=== PATIENT | female | born 1995 | race Caucasian/White ===

== ENCOUNTER 2022-12-13 16:57 | Inpatient (IN) ==
[2022-12-13] MEDS ORDERED: miSOPROStoL 50 MCG TAB PO ONE (20:31)
[2022-12-13] MEDS ORDERED: LIDOCAINE 1% LOCAL 20 ML VIAL INFIL PRN (20:31)
[2022-12-13] MEDS ORDERED: OXYTOCIN 30 UNITS/500 ML BAG IV PRN (20:31)
[2022-12-13 21:34] LABS: Hematocrit (blood only) 39.7 % (37.0-47.0); Mean Corpuscular Hemoglobin 31.5 pg (25.0-34.0); Mean Corpuscular Hgb Conc 35.3 g/dL (32.0-36.0); Mean Corpuscular Volume 89.2 fL (80.0-100.0); Mean Platelet Volume 10.9 fL (9.4-12.4); Platelet Count 186 K/uL (130-400); RDW Coefficient of Variation 13.1 % (11.5-14.5); RDW Standard Deviation 42.7 fL (36.4-46.3); Red Blood Count 4.45 M/uL (4.20-5.40); White Blood Count 10.81 K/ul (4.8-10.8)
[2022-12-14] MEDS ORDERED: OXYTOCIN 30 UNITS/500 ML BAG IV PRN ×2 (02:37→12:01)
[2022-12-14] MEDS: LACTATED RINGER'S 1,000 ML IV PRN ×2 (03:02→07:08)
[2022-12-14] MEDS ORDERED: fentaNYL citrate PF 100 MCG/2 ML VIAL ONE (06:43)
[2022-12-14] MEDS ORDERED: ePHEDrine sulfate 50 MG/ML AMP ONE (06:43)
[2022-12-14] MEDS ORDERED: fentaNYL 2MCG/ML ROPIVACAINE 1.25MG/ML 100 ML BAG EPI ONE (06:44)
[2022-12-14] MEDS ORDERED: SODIUM CHLORIDE 0.9% PF INJ 10 ML VIAL ONE (06:44)
[2022-12-14] MEDS ORDERED: BUPIVACAINE 0.25% PF 30 ML VIAL ONE (06:44)
[2022-12-14] MEDS ORDERED: LIDOCAINE 2%/EPINEPHRINE 1:200,000 20 ML PF ONE (06:44)
[2022-12-14] MEDS ORDERED: diphenhydrAMINE 50 MG/ML VIAL IV PRN (07:56)
[2022-12-14] MEDS ORDERED: BUPIVACAINE 0.25% PF 30 ML VIAL EPI PRN (07:56)
[2022-12-14] MEDS ORDERED: ONDANSETRON INJ 2 MG/ML 2 ML VIAL IV PRN (07:56)
[2022-12-14] MEDS ORDERED: ePHEDrine sulfate 50 MG/ML AMP IV PRN (07:56)
[2022-12-14] MEDS ORDERED: NALOXONE HCL 0.4 MG/1 ML VIAL/CARP IV PRN (07:56)
[2022-12-14] MEDS ORDERED: fentaNYL citrate PF 100 MCG/2 ML VIAL EPI STA (07:56)
[2022-12-14] MEDS ORDERED: LIDOCAINE 2%/EPINEPHRINE 1:200,000 20 ML PF EPI STA (07:56)
[2022-12-14] MEDS ORDERED: SODIUM CHLORIDE 0.9% PF INJ 10 ML VIAL EPI PRN (07:56)
[2022-12-14] MEDS ORDERED: fentaNYL citrate PF 100 MCG/2 ML VIAL EPI PRN (07:56)
[2022-12-14] MEDS ORDERED: ROPIVACAINE 0.5% PF 5 MG/ML 20 ML VIAL EPI PRN (07:56)
[2022-12-14] MEDS ORDERED: NALBUPHINE HCL INJ 10 MG/ML AMP IV PRN (07:56)
[2022-12-14] MEDS ORDERED: LIDOCAINE 2% MPF LOCAL 5 ML VIAL EPI PRN (07:56)
[2022-12-14] MEDS ORDERED: BUPIVACAINE 0.25% PF 30 ML VIAL EPI STA (07:56)
[2022-12-14] MEDS ORDERED: fentaNYL 2MCG/ML ROPIVACAINE 1.25MG/ML 100 ML BAG EPI PRN (07:56)
[2022-12-14] MEDS ORDERED: NALOXONE HCL 1 MG in SODIUM CHLORIDE 0.9% 1000ML 1,000 ML IV PRN (07:56)
[2022-12-14] MEDS ORDERED: SODIUM CHLORIDE 0.9% PF INJ 10 ML VIAL EPI STA (07:56)
--- NOTE | 2022-12-14 07:56 | Anesthesiology Consultation ---
Date of Service December 14, 2022 Assessment & Plan Chart Review Chart Review: Patient NOT seen in Pre Admission Testing and Acceptable Risk for Labor Epidural Consults Requested none ASA ASA2 Proposed Anesthesia Anesthesia Type: Labor Epidural Risk / Benefits Reviewed With: PT / POA / Parent / Guardian, Accepts Plan and Informed Consent Obtained History Height/Weight Height: 5 ft 5 in Weight: 77.564 kg Allergies Allergy/AdvReac Type Severity Reaction Status Date / Time No Known Allergies Allergy Verified 10/06/22 09:29 Medications Home Medications Medication Instructions Recorded Confirmed Last Taken prenat.vits,nestor,ife-toqu-npgng 1 tab PO DAILY 04/18/22 10/06/22 Unknown Active Medications Generic Name Dose Route Start Last Admin Trade Name Freq PRN Reason Stop Dose Admin Lactated Ringer's 1,000 mls @ 125 mls/hr 12/13/22 20:31 12/14/22 07:08 Lr IV 12/15/22 20:30 125 mls/hr .Q8H PRN Administration L&D Protocol Protocol Oxytocin 30 units in 500 mls @ 8 mls/hr 12/14/22 02:37 12/14/22 07:06 Pitocin IV 12/16/22 02:36 0.48 units/hr .Q24H PRN 8 mls/hr Labor Induction/Augmentation Titration Protocol 0.48 UNITS/HR Past Medical History Medical History Varicella vaccination Exercise / Class Metabolic Activity II 4-5 Yardwork/Stairs/Walk up hill Past Family History Family History (Updated 04/18/22 @ 15:20 by Heather Cornejo) Mother Breast cancer Grandmother (Maternal) Breast cancer Aunt Breast cancer Denies family history of Ovarian cancer Colorectal cancer Past Surgical History Surgical History S/P wisdom tooth extraction Past Anesthesia History No Hx of Anesthesia Complications and No Family Hx of Anesthesia Complications History of PONV No Hx of PONV and No Hx of Motion Sickness Social History Smoking Status: Never smoker Do You Dip or Chew Tobacco: No Hx Alcohol Use: No Hx Substance Use: No Physical Exam Vital Signs Last Vital Signs Temp 36.7 C 12/14/22 07:22 Pulse 91 H 12/14/22 07:52 Resp 20 12/14/22 07:22 BP 116/76 12/14/22 07:30 Pulse Ox 98 12/14/22 07:52 ENMT Mouth: no dentition abnormality Thyromental Distance: > or= 3.5 Finger Breadths Mallampati Class: II Neck normal visual inspection Respiratory normal respiratory effort Auscultation: lungs clear to auscultation bilaterally Cardiovascular Rate/Rhythm: regular rate and regular rhythm Psychiatric Orientation: alert Testing Laboratory Results 12/13/22 20:56
[2022-12-14] MEDS ORDERED: METHYLERGONOVINE MALEATE 0.2 MG/ML AMP IM ONE (12:01)
[2022-12-14] MEDS ORDERED: HYDROCORTISONE ACETATE 25 MG SUPP PR PRN (12:01)
[2022-12-14] MEDS ORDERED: bisacodyL 10 MG SUPP PR PRN (12:01)
[2022-12-14] MEDS ORDERED: oxyCODONE/ACETAMINOPHEN 5mg/325mg TAB PO PRN (12:01)
[2022-12-14] MEDS ORDERED: BENZOCAINE 20% AER SPR 82.5 GM CAN EXT PRN (12:01)
[2022-12-14] MEDS ORDERED: ACETAMINOPHEN 325 MG TAB PO PRN (12:01)
[2022-12-14] MEDS ORDERED: DIPHTHERIA/TETANUS/PERTUSSIS Vaccine (Tdap, Age 7+yrs) 0.5mL SYR/VL IM ONE (12:01)
[2022-12-14] MEDS ORDERED: ACETAMINOPHEN W/CODEINE #3 1 TAB PO PRN (12:01)
--- NOTE | 2022-12-14 12:25 | Delivery Summary ---
Vaginal Delivery Summary Date of Service December 14, 2022 Vaginal Delivery Summary Patient is a 27-year-old 1 para 1. She has been followed in my office for care and delivery. She went over her expected date of confinement. At 41 weeks and 2 days gestation she was brought in for induction. Her cervix was fairly ripe about 3 to 4 cm. She was given 1 dose of p.o. Cytotec. Followed by IV Pitocin. Then ruptured membranes. After which she got epidural anesthesia. Went to a full dilatation. The head and descended nicely. And she pushed out a live male via direct occiput anterior position. Over an intact perineum. Infant was allowed to be attached to the cord for 1 minute. Then the cord was clamped and cut by the father. Cord blood was taken. The placenta was removed intact. With the use of IV Pitocin. Estimated blood loss was 200 mL. Cord blood was taken for the lab. Repair of a second-degree laceration was performed. The upper defect of the vaginal laceration was identified. The vaginal mucosa was approximated with a running 2-0 Vicryl. This approximation extended down to beyond the hymenal ring. A deep suture was used to approximate the bulbocavernosus muscle. Separate sutures used approximate the perineal body. Sutures used to bolster the rectal sphincter capsule. Then a running subcuticular suture was used to approximate the perineal skin edges. Following dysphagic Michael including rectovaginal examination revealed no hematoma formation or sponges in the vagina. Uterus contracted nicely.
[2022-12-14] MEDS ORDERED: METHYLERGONOVINE MALEATE 0.2 MG/ML AMP ONE (14:16)
--- NOTE | 2022-12-14 14:33 | Anesthesia Procedure Note ---
Date of Service December 14, 2022 Anesthesia Post Epidural Note Vital Signs Vital Signs: Temp Pulse Resp BP Pulse Ox 36.8 C 85 18 119/73 93 12/14/22 09:16 12/14/22 14:31 12/14/22 12:31 12/14/22 14:31 12/14/22 14:28 Pain Intensity Lower Medial Abdomen: Pain Intensity: 0 Notes Mental Status: alert / awake / arousable Nausea / Vomiting: adequately controlled Pain: adequately controlled Airway Patency, RR, SpO2: stable & adequate BP & HR: stable & adequate Hydration State: stable & adequate Neuraxial Anesthesia: was administered and sensory block is resolving Anesthetic Complications: no major complications apparent and Pt Satisfied with anesthetic care Epidural: Removed without complications and With tip intact
[2022-12-14] MEDS: IBUPROFEN 600 MG TAB PO PRN ×2 (15:51→21:22)
[2022-12-14] MEDS: DOCUSATE SODIUM 100 MG CAP PO SCH (21:22)
[2022-12-15] MEDS: IBUPROFEN 600 MG TAB PO PRN ×3 (01:56→10:02)
[2022-12-15 06:56] LABS: Hematocrit (blood only) 35.8 % (37.0-47.0); Hemoglobin 12.6 g/dl (12.0-16.0); Mean Corpuscular Hemoglobin 31.7 pg (25.0-34.0); Mean Corpuscular Hgb Conc 35.2 g/dL (32.0-36.0); Mean Corpuscular Volume 89.9 fL (80.0-100.0); Mean Platelet Volume 10.9 fL (9.4-12.4); Platelet Count 162 K/uL (130-400); RDW Coefficient of Variation 13.2 % (11.5-14.5); RDW Standard Deviation 43.8 fL (36.4-46.3); Red Blood Count 3.98 M/uL (4.20-5.40); White Blood Count 13.86 K/ul (4.8-10.8)
[2022-12-15] MEDS ORDERED: PRENATAL VITAMIN 1 TAB PO SCH (08:00)
[2022-12-15] MEDS: DOCUSATE SODIUM 100 MG CAP PO SCH (08:05)
--- NOTE | 2022-12-15 08:42 | Obstetrical Progress Note ---
Date of Service December 15, 2022 Assessment & Plan Admission and Anticipated Discharge Date Admission Date: December 13, 2022 OB Progress Note abdomen soft and non tender no calf tenderness ambulating well vaginal bleeding scant hgb 12.6 Results & Data Vital Signs (Past 12 Hours) Vital Signs Temp Pulse Resp BP O2 Del Method 12/15/22 04:29 36.6 C 76 18 118/85 Room Air 12/14/22 23:00 37.0 C 86 16 104/69 Room Air
[2022-12-15] MEDS ORDERED: bisacodyL 5 MG TABEC PO SCH (20:00)
== END 2022-12-15 13:27 | disposition home or self-care (01) | DRG 807 ==
LOC: 4S1 19:22 → 4E2 12-14 15:00

== ENCOUNTER 2025-02-12 07:56 | Inpatient (IN) ==
[2025-02-12] MEDS ORDERED: CALCIUM CARBONATE 500 MG CHEWABLE TAB PO PRN (08:05)
[2025-02-12] MEDS ORDERED: ACETAMINOPHEN 325 MG TAB PO PRN (08:05)
[2025-02-12] MEDS ORDERED: LIDOCAINE 1% LOCAL 20 ML VIAL INFIL PRN (08:05)
[2025-02-12 08:43] LABS: Hematocrit (blood only) 39.4 % (37.0-47.0); Hemoglobin 13.6 g/dl (12.0-16.0); Mean Corpuscular Hemoglobin 30.9 pg (25.0-34.0); Mean Corpuscular Volume 89.5 fL (80.0-100.0); Platelet Count 189 K/uL (130-400); RDW Standard Deviation 41.5 fL (36.4-46.3); Red Blood Count 4.40 M/uL (4.20-5.40); White Blood Count 9.78 K/ul (4.8-10.8)
[2025-02-12] MEDS: OXYTOCIN 30 UNITS/NSS 30 UNITS/500 ML BAG IV PRN ×2 (09:34→14:59)
[2025-02-12] MEDS: LACTATED RINGER'S 1,000 ML IV PRN (09:34)
--- NOTE | 2025-02-12 09:34 | History & Physical Report ---
Date of Service February 12, 2025 Assessment & Plan (1) 40 weeks gestation of : (2) Encounter for induction of labor: Plan Pitocin Arom when indicated Monitor tracing, category 1 Admission and Anticipated Discharge Date Admission Date: February 12, 2025 History of Present Illness Chief Complaint: Induction of Labor Primary Care Provider: Manolo Eli PA-C 29 yo at 40w4d admitted for IOL for postdates. No snider bulb in place. Denies FIGUEREDO, CP, SOB, N/V/D, LE pain. Complications in this include Hep B non-immune. Denies contractions, fluid loss, bloody show. Feels movement. GBS neg, RH- Allergies Allergy/AdvReac Type Severity Reaction Status Date / Time No Known Allergies Allergy Verified 02/11/25 19:24 Home Medications Medication Instructions Recorded Confirmed Type vits no.124-ferrous fum 1 tab PO HS 02/12/25 02/12/25 History 27 mg iron-folic acid 800 mcg tablet ( Vitamin) Patient History Medical History (Updated 02/12/25 @ 09:37 by Dana Smith DO) Varicella vaccination Surgical History S/P wisdom tooth extraction Family History Mother Breast cancer Grandmother (Maternal) Breast cancer Aunt Breast cancer Denies family history of Ovarian cancer Colorectal cancer Social History Smoking Status: Never smoker Do You Dip or Chew Tobacco: No; Hx Alcohol Use: No Hx Substance Use: No Preferred Language: Citizen Of [place] Communication Ability: Effective Data Manager Required: No Beliefs That Will Affect Care: None marital status: marital status details: Brian Olivares (27) [phone] Current Living Situation: Family Current Living Situation Comment: Spouse, kid, 2 dogs current occupational status: employed current occupation: [employer] Nurse Other Information That Helps Us Care for You: No Feels Safe at Home: Yes Safety Concerns: Feels Safe At This Time Assistive Devices: Contacts and Glasses OB History : 2 Full term: 1 Premature: 0 Total Number of Induced Abortions: 0 Total Number of Spontaneous Abortions: 0 Ectopics: 0 Multiple births: 0 Number of Living Children: 1 DATABASE DBA History Last menstrual period: Yes Menstrual reliability: definite Flow: normal Menstrual regularity: regular Monthly: Yes Age at menarche: 14 On control pills at conception: No Date of positive home test: 06/08/24 Menstrual history comments: cycles 28-30 days Details: last pap 01/24/[address] [place] Review of Systems All systems reviewed & are unremarkable except as noted in HPI & below Denies fever, chills. Physical Exam Constitutional: WD/WN, vitals as above Respiratory: normal respiratory effort, lungs clear to auscultation Cardiovascular: RRR, no murmur, no edema Gastrointestinal (Abdomen): normal bowel sounds, soft, nontender, no hepatosplenomegaly +gravid Skin: no rashes, warm and dry Genitourinary: OB Exam Abdomen: + vertex and + irregular contractions Manual OB Exam: + cervical dilation 4 cm, + cervical effacement 70% and + station -1 OB Exam Monitor Tracing: + external FHT monitor used, + external uterine monitor used, + category I and + normal FHT variability EBW: 7-8 lbs. Lymphatic: no LE edema bilaterally, negative Roxanne sign bilaterally Results & Data Vital Signs (Past 12 Hours) Vital Signs Temp Pulse BP O2 Del Method 02/12/25 09:27 37 C Room Air 02/12/25 08:23 37.0 C 02/12/25 08:15 95 H 132/89 Monitoring External Monitor HR: 140 Variability: moderate Accelerations: present Decelerations: absent Category 1 tracing Supervising Physician Co-Signing Physician Notes Resident Physician Supervision Note: I interviewed and examined the patient. Discussed with Dr. Smith and agree with findings and plan as documented in the note. Any exceptions or clarifications are listed here: [None] Documented By: Radha Rick MD, FACOG Resident Activity Tracking Resident Involvement: Resident Care Provided Care Provided: OB Delivery
[2025-02-12] MEDS ORDERED: ROPIVACAINE 0.5% PF 5 MG/ML 20 ML VIAL EPI PRN (13:13)
[2025-02-12] MEDS ORDERED: NALOXONE HCL 0.4 MG/1 ML VIAL/CARP IV PRN (13:13)
[2025-02-12] MEDS ORDERED: NALBUPHINE HCL INJ 10 MG/ML AMP IV PRN (13:13)
[2025-02-12] MEDS ORDERED: BUPIVACAINE 0.25% PF 30 ML VIAL EPI PRN (13:13)
[2025-02-12] MEDS ORDERED: fentANYL 2 MCG/ML BUPIVacaine 0.125%-NSS 100ML BAG EPI PRN (13:13)
[2025-02-12] MEDS ORDERED: LIDOCAINE 2% MPF LOCAL 5 ML VIAL EPI PRN (13:13)
[2025-02-12] MEDS ORDERED: NALOXONE HCL 1 MG in SODIUM CHLORIDE 0.9% 1,000 ML IV PRN (13:13)
[2025-02-12] MEDS ORDERED: SODIUM CHLORIDE 0.9% PF INJ 10 ML VIAL EPI PRN (13:13)
[2025-02-12] MEDS ORDERED: diphenhydrAMINE 50 MG/ML VIAL IV PRN (13:13)
--- NOTE | 2025-02-12 13:26 | Anesthesiology Consultation ---
Date of Service February 12, 2025 Assessment & Plan Chart Review Chart Review: Patient NOT seen in Pre Admission Testing and Acceptable Risk for Labor Epidural Consults Requested none ASA ASA2 Proposed Anesthesia Anesthesia Type: Labor Epidural Risk / Benefits Reviewed With: PT / POA / Parent / Guardian, Accepts Plan and Informed Consent Obtained History Height/Weight Height: 5 ft 5 in Weight: 81.193 kg Allergies Allergy/AdvReac Type Severity Reaction Status Date / Time No Known Allergies Allergy Verified 02/11/25 19:24 Medications Home Medications Medication Instructions Recorded Confirmed Last Taken vits no.124-ferrous fum 1 tab PO HS 02/12/25 02/12/25 02/11/25 27 mg iron-folic acid 800 mcg tablet ( Vitamin) Active Medications Generic Name Dose Route Start Last Admin Trade Name Freq PRN Reason Stop Dose Admin Oxytocin 30 units in 500 mls @ 11 mls/hr 02/12/25 08:05 02/12/25 12:27 Pitocin 30 Units/Nss IV 02/14/25 08:04 0.66 units/hr .Q24H PRN 11 mls/hr Labor Induction/Augmentation Titration Protocol 0.66 UNITS/HR Lactated Ringer's 1,000 mls @ 125 mls/hr 02/12/25 08:05 02/12/25 09:34 Lr IV 02/14/25 08:04 125 mls/hr .Q8H PRN Administration L&D Protocol Protocol NPO Date Last Intake of Fluids: 02/12/25 Time Last Intake of Fluids: 13:00 Date Last Intake of Solids: 02/12/25 Time Last Intake of Solids: 11:00 Past Medical History Medical History Varicella vaccination Exercise / Class Metabolic Activity 1 > 8 Run/Swim/Ski/Tennis Past Family History Family History Mother Breast cancer Grandmother (Maternal) Breast cancer Aunt Breast cancer Denies family history of Ovarian cancer Colorectal cancer Past Surgical History Surgical History S/P wisdom tooth extraction Past Anesthesia History No Hx of Anesthesia Complications and No Family Hx of Anesthesia Complications History of PONV No Hx of PONV and No Hx of Motion Sickness Social History Smoking Status: Never smoker Do You Dip or Chew Tobacco: No Hx Alcohol Use: No Hx Substance Use: No substance use type: does not use Review of Systems ROS Unobtainable: All systems reviewed & are unremarkable except as noted in HPI & below Physical Exam Vital Signs Last Vital Signs Temp 37.0 C 02/12/25 11:38 Pulse 94 H 02/12/25 13:19 BP 132/89 02/12/25 08:15 Pulse Ox 92 02/12/25 13:19 O2 Del Method Room Air 02/12/25 09:27 ENMT Mouth: no TMJ abnormality Thyromental Distance: > or= 3.5 Finger Breadths Mallampati Class: II Neck normal visual inspection and trachea midline; neck extension not limited Respiratory normal respiratory effort Auscultation: lungs clear to auscultation bilaterally Cardiovascular Rate/Rhythm: regular rate and regular rhythm Heart Sounds: no murmur Musculoskeletal Spine: normal cervical ROM Extremities: full ROM of extremities Neurologic moves all extremities Psychiatric Orientation: alert and oriented x 3 Testing Laboratory Results 02/12/25 08:27
[2025-02-12] MEDS: fentANYL 2 MCG/ML BUPIVacaine 0.125%-NSS 100ML BAG ONE (13:43)
[2025-02-12] MEDS: LIDOCAINE 2%/EPINEPHRINE 1:200,000 20 ML PF ONE (13:43)
[2025-02-12] MEDS: BUPIVACAINE 0.25% PF 30 ML VIAL ONE (13:43)
[2025-02-12] MEDS ORDERED: BENZOCAINE 20% SPRY 85 APPLN/85 GM CAN EXT PRN (14:52)
[2025-02-12] MEDS ORDERED: OXYTOCIN 30 UNITS/NSS 30 UNITS/500 ML BAG IV PRN (14:52)
[2025-02-12] MEDS ORDERED: HYDROCORTISONE ACETATE 25 MG SUPP PR PRN (14:52)
--- NOTE | 2025-02-12 14:56 | Delivery Summary ---
Vaginal Delivery Summary Date of Service February 12, 2025 Vaginal Delivery Summary and 2nd Degree LAC Progressed to 10 cm dilated 100% effaced +2 station pushed over intact perineum over 1 contraction and delivery of viable female with weight and Apgars pending. Head of the delivered without difficulty. No nuchal cord was noted and shoulders and body quickly followed. was noted be vigorous upon delivery and a 1 minute delayed cord clamping was initiated. Cord was then double clamped and cut remained on maternal abdomen. Cord blood obtained and attention turned to deliver the placenta which delivered intact three-vessel cord gentle cord traction. Inspection of the perineum vagina and cervix there is noted to be a second-degree perineal laceration which was repaired with 3-0 Vicryl under traditional crown stitch. Needle sponge and inst rument counts were correct at the completion of the case. Both mother and stable in the immediate postdelivery timeframe. No complications noted and blood loss per QBL in chart. [facility] Vaginal Delivery Charge Delivery Type Details: and 2nd Degree LAC
--- NOTE | 2025-02-12 16:03 | Anesthesia Procedure Note ---
Date of Service February 12, 2025 Anesthesia Post Epidural Note Vital Signs Vital Signs: Temp Pulse BP Pulse Ox O2 Del Method 36.5 C 100 H 135/80 86 L Room Air 02/12/25 14:45 02/12/25 15:33 02/12/25 15:30 02/12/25 15:33 02/12/25 15:30 Notes Mental Status: alert / awake / arousable and participated in evaluation Nausea / Vomiting: adequately controlled Pain: adequately controlled Airway Patency, RR, SpO2: stable & adequate BP & HR: stable & adequate Hydration State: stable & adequate Neuraxial Anesthesia: was administered and sensory block is resolving Anesthetic Complications: no major complications apparent Epidural: Removed without complications and With tip intact
[2025-02-12] MEDS: SODIUM CHLORIDE 0.9% PF INJ 10 ML VIAL ONE (17:29)
[2025-02-12] MEDS: LIDOCAINE 2%/EPINEPHRINE 1:200,000 20 ML PF EPI STA (17:29)
[2025-02-12] MEDS: SODIUM CHLORIDE 0.9% PF INJ 10 ML VIAL EPI STA (17:29)
[2025-02-12] MEDS: BUPIVACAINE 0.25% PF 30 ML VIAL EPI STA (17:29)
[2025-02-12] MEDS: ACETAMINOPHEN 325 MG TAB PO PRN (17:33)
[2025-02-12] MEDS: IBUPROFEN 600 MG TAB PO PRN (19:24)
[2025-02-12] MEDS: DOCUSATE SODIUM 100 MG CAP PO SCH (21:27)
[2025-02-13] MEDS: DIPHTHER/TETAN/PERTUS Vaccine (Tdap, Adol/Adult) 0.5mL IM ONE (00:32)
--- NOTE | 2025-02-13 06:36 | Obstetrical Progress Note ---
Date of Service <Dana Smith DO - Last Filed: 02/13/25 07:53> February 13, 2025 Assessment & Plan <Dana Smith DO - Last Filed: 02/13/25 07:53> (1) care following vaginal delivery: Plan 29 yo post- day 1 s/p . She had 2nd degree laceration. Feels well today. Vital signs stable Continue post- care Encourage ambulation and Pain controlled with ibuprofen Hgb stable Discharge home today 24 hours after delivery if current state of health continues, follow up with Dr. Pace in 6 weeks. <Goldy Pace MD - Last Filed: 02/14/25 12:47> (1) care following vaginal delivery: Subjective <Dana Smith DO - Last Filed: 02/13/25 07:53> 29 yo post- day 1 s/p . She had 2nd degree laceration. Ambulation: ambulating normally Voiding: no voiding problems Passing Gas:: Yes Passing Stool:: No Diet Tolerance:: regular diet Lochia:: Small Feeding Type:: breast feeding Current Pain Level: 0/10 Resting comfortably this AM in NAD. Denies FIGUEREDO, CP, SOB, N/V/D, LE pain/swelling. Review of Systems All systems reviewed & are unremarkable except as noted in HPI & below Physical Exam <Dana Smith DO - Last Filed: 02/13/25 07:53> General: patient resting comfortably, NAD, non-toxic in appearance, AA&O x 4, answers questions appropriately. Skin: warm, dry, intact HEENT: NC/AT, anicteric sclera, conjunctiva without injection, moist mucus membranes. Heart: +S1/S2, regular, no m/r/g Lungs: equal air entry bilaterally, no rales/rhonchi/wheezes Abd: +BS, soft, NT/ND, uterine fundus firm at umbilicus Ext: warm, no clubbing/cyanosis or edema, Roxanne's neg. Neuro: nonfocal, patient AA&O x 4, speech intact, no facial droop, moving all extremities on command. Results & Data <Dana Smith DO - Last Filed: 02/13/25 07:53> Vital Signs (Past 12 Hours) Vital Signs Temp Pulse Resp BP Pulse Ox O2 Del Method 02/13/25 00:30 36.9 C 97 H 16 111/74 96 Room Air Laboratory Results OB Labs: Blood Type A Negative 07/19/24 Antibody Screen NEGATIVE 12/16/24 Hgb 13.7 g/dl (12.0-16.0) 12/16/24 Hct 39.4 % (37.0-47.0) 12/16/24 MCV 85.6 fL (80.0-100.0) 07/19/24 Plt Count 243 K/uL (130-400) 07/19/24 Rubella IgG Antibody Immune (Immune) 07/19/24 RPR Nonreactive (Nonreactive) 04/29/22 Treponema pallidum Ab Negative (Negative) 12/16/24 Hep Bs Antigen Negative (Negative) 07/19/24 Hep Bs Antigen NON-REACTIVE (NON-REACTIVE) 04/29/22 Hepatitis C Antibody Negative (Negative) 07/19/24 Hepatitis C Ab (EIA) NON-REACTIVE (NON-REACTIVE) 04/29/22 HIV 1&2 Ab/P24 Ag 4thGn Negative (Negative) 07/19/24 HIV (1&2) Ag & Ab Conf NON-REACTIVE (NON-REACTIVE) 04/29/22 Glucose 1 Hr 50 gm 131 mg/dl (70-130) H 12/16/24 OB Optional Labs: Chlamydia trachomatis RNA Not Detected (NotDetected) 07/19/24 Neisseria gonorrhoeae RNA Not Detected (NotDetected) 07/19/24 Supervising Physician <Goldy Pace MD - Last Filed: 02/14/25 12:47> Co-Signing Physician Notes Patient seen with resident agree with the above findings and plan. Stable for discharge today as preferred Resident Activity Tracking <Dana Smith DO - Last Filed: 02/13/25 07:53> Resident Involvement: Resident Care Provided Care Provided: OB Delivery
[2025-02-13 07:37] VITALS: RESP 18
[2025-02-13] MEDS ORDERED: PRENATAL VITAMIN 1 TAB PO SCH (08:00)
[2025-02-13] MEDS: FERROUS SULFATE 325 MG TAB PO SCH (08:18)
[2025-02-13 14:35] VITALS: TEMP 98.4; O2SAT 100
[2025-02-13 15:05] VITALS: BP 126/86; PULSE 86
== END 2025-02-13 16:10 | disposition home or self-care (01) | DRG 807 ==
LOC: 4S1 07:56 → 4E2 18:00